=== PATIENT | female | born 1975 | race Caucasian/White ===

== ENCOUNTER 2016-09-24 19:23 | Emergency (ER) | payer SELFPAY ==
[2016-09-24] MEDS ORDERED: LEXAPRO20 MG PO (20:58)
[2016-09-24] MEDS ORDERED: CYMBALTA60 MG PO (21:00)
[2016-09-24] MEDS ORDERED: XARELTO20 MG PO (21:01)
[2016-09-24] MEDS ORDERED: VERAPAMIL HCL240 MG PO (21:02)
[2016-09-24] MEDS ORDERED: CALCITRIOL0.25 MC1 PO (21:08)
[2016-09-24] MEDS ORDERED: PIOGLITAZONE HC15 MG PO (21:10)
[2016-09-24] MEDS ORDERED: VALIUM5 MG PO (21:12)
[2016-09-24] MEDS ORDERED: SOMA350 MG PO (21:15)
[2016-09-24] MEDS ORDERED: OXYMORPHONE HYD10 M1 PO (21:16)
== END 2016-09-24 20:28 | disposition left against medical advice (07) | DRG 951 ==
LOC: ED 19:23 → LWOBS 20:28 → ED 20:56 → LWOBS 20:56 → ED 20:57 → LWOBS 20:57
DX: Z91.19 Patient's noncompliance with other medical treatment and regimen (principal)

== ENCOUNTER 2017-06-08 12:21 | Emergency (ER) | payer OTHER ==
[~2017-06-08 12:21] MED LIST: CALCITRIOL0.25 MC1 PO; CYMBALTA60 MG PO; LEXAPRO20 MG PO; OXYMORPHONE HYD10 M1 PO; PIOGLITAZONE HC15 MG PO; SOMA350 MG PO; VALIUM5 MG PO; VERAPAMIL HCL240 MG PO; XARELTO20 MG PO
[2017-06-08] MEDS ORDERED: FLEXERIL PO (15:09)
[2017-06-08] MEDS ORDERED: TORADOL PO (15:09)
[2017-06-08 15:15] VITALS: BP 129/74
== END 2017-06-08 15:15 | disposition home or self-care (01) | DRG 552 ==
LOC: ED 12:21
DX: S16.1XXA Strain of muscle, fascia and tendon at neck level, initial encounter (principal); S46.912A Strain of unspecified muscle, fascia and tendon at shoulder and upper arm level, left arm, initial encounter; I10 Essential (primary) hypertension; X50.1XXA Overexertion from prolonged static or awkward postures, initial encounter

== ENCOUNTER 2017-06-28 10:25 | Emergency (ER) | payer SELFPAY ==
[~2017-06-28] VITALS: Ht 162.6 cm; Wt 95.4 kg
[~2017-06-28 10:25] MED LIST changes: +FLEXERIL PO; +TORADOL PO
[2017-06-28 11:27] LABS: HEMATOCRIT 47.1 % (37.0-47.0); HEMOGLOBIN 16.1 g/dl (12.0-16.0); IMMATURE GRANULOCYTES 0.4 % (0.0-1.0); MEAN CELL VOLUME 93.3 fL CALC (80.0-100.0); MEAN CORPUSCULAR HGB 31.9 pG CALC (26.0-32.0); MEAN CORPUSCULAR HGB CONC 34.2 g/L CALC (32.0-36.0); NEUT# 6.75 thou/uL (2.00-7.15); RED BLOOD COUNT 5.05 mill/uL (4.20-5.60); RED CELL DISTRI WIDTH 13.5 % (11.5-15.5)
[2017-06-28 11:30] LABS: BILIRUBIN, TOTAL 0.4 mg/dL (0.0-1.4); CREATININE 1.2 mg/dL (0.5-1.0)
[2017-06-28 11:30] LABS: URINE BILIRUBIN - DIPSTICK NEGATIVE (NEGATIVE); URINE BLOOD DIPSTICK NEGATIVE (NEGATIVE); URINE CLARITY CLEAR; URINE COLOR YELLOW; URINE GLUCOSE - DIPSTICK NEGATIVE (NEGATIVE); URINE KETONE NEGATIVE (NEGATIVE); URINE LEUK ESTERASE NEGATIVE (NEGATIVE); URINE NITRITE - DIPSTICK NEGATIVE (Negative); URINE PH 5.5 (4.5-8.0); URINE PROTEIN - DIPSTICK NEGATIVE (NEG-TRACE); URINE SPECIFIC GRAVITY >=1.030; URINE UROBILINOGEN - DIPSTICK 0.2 E.U./dL (0.2)
[2017-06-28 11:32] LABS: BARBITURATES NEGATIVE (NEGATIVE); COCAINE NEGATIVE (NEGATIVE); METHADONE NEGATIVE (NEGATIVE); OXCYCODONE NEGATIVE (NEGATIVE); TETRAHYDROCANNABIONOL NEGATIVE (NEGATIVE); TRICYLIC ANTIDEPRESSANTS NEGATIVE (NEGATIVE)
[2017-06-28 11:34] LABS: ALBUMIN 4.8 g/dL (3.2-5.0); TOTAL PROTEIN 8.9 g/dL (6.3-8.2)
[2017-06-28 12:00] LABS: TSH, 3RD GENERATION 2.9 uIU/mL (0.47 - 4.68)
[2017-06-28] MEDS ORDERED: ANTIVERT PO (13:21)
[2017-06-28 13:43] VITALS: BP 130/86
== END 2017-06-28 13:49 | disposition home or self-care (01) | DRG 149 ==
LOC: ED 10:25
PROVIDERS: Emergency Medicine
DX: R42 Dizziness and giddiness (principal); I10 Essential (primary) hypertension

== ENCOUNTER 2020-12-17 15:42 | Emergency (ER) | payer OTHER ==
[~2020-12-17] VITALS: Ht 162.6 cm; Wt 100.0 kg
[~2020-12-17 15:42] MED LIST changes: +ANTIVERT PO
[2020-12-17 16:27] LABS: HEMOGLOBIN 14.7 g/dl (12.0-16.0); IMMATURE GRANULOCYTES 0.1 % (0.0-5.0); MEAN CELL VOLUME 95.7 fL CALC (80.0-100.0); MEAN CORPUSCULAR HGB CONC 33.4 g/dL CAL (32.0-36.0); NEUT# 5.97 thou/uL (2.00-7.15); RED BLOOD COUNT 4.6 mill/uL (4.20-5.60); RED CELL DISTRI WIDTH 13.5 % (11.5-15.5)
[2020-12-17 16:35] LABS: HCG SERUM/URINE (NEG/POS) NEGATIVE (NEGATIVE)
[2020-12-17 16:55] LABS: CREATININE 1.2 mg/dL (0.5-1.0)
[2020-12-17 18:05] VITALS: BP 148/85
== END 2020-12-17 18:05 | disposition home or self-care (01) | DRG 103 ==
LOC: ED 15:42
PROVIDERS: Family Medicine
DX: R51.9 Headache, unspecified (principal); I10 Essential (primary) hypertension; Z20.822 Contact with and (suspected) exposure to COVID-19

== ENCOUNTER 2021-01-16 03:24 | Emergency (ER) | payer OTHER ==
[~2021-01-16] VITALS: Ht 162.6 cm; Wt 100.0 kg
[2021-01-16 03:56] LABS: HEMATOCRIT 40.5 % (37.0-47.0); HEMOGLOBIN 13.4 g/dl (12.0-16.0); IMMATURE GRANULOCYTES 0.3 % (0.0-5.0); MEAN CELL VOLUME 95.5 fL CALC (80.0-100.0); MEAN CORPUSCULAR HGB 31.6 pG CALC (26.0-32.0); MEAN CORPUSCULAR HGB CONC 33.1 g/dL CAL (32.0-36.0); NEUT# 10.17 thou/uL (2.00-7.15); RED BLOOD COUNT 4.24 mill/uL (4.20-5.60); RED CELL DISTRI WIDTH 13.3 % (11.5-15.5)
[2021-01-16] MEDS ORDERED: BUPROPN HCL300 MG PO (04:02)
[2021-01-16 04:18] LABS: ALBUMIN 4.2 g/dL (3.2-5.0); BILIRUBIN, TOTAL 0.4 mg/dL (0.0-1.4); CREATININE 1.3 mg/dL (0.5-1.0); POTASSIUM 4.2 mmol/l (3.5-5.1); TOTAL PROTEIN 7.8 g/dL (6.3-8.2)
[2021-01-16 05:23] LABS: URINE BILIRUBIN - DIPSTICK NEGATIVE (NEGATIVE); URINE BLOOD DIPSTICK LARGE (NEGATIVE); URINE COLOR YELLOW; URINE GLUCOSE - DIPSTICK NEGATIVE (NEGATIVE); URINE KETONE NEGATIVE (NEGATIVE); URINE LEUK ESTERASE NEGATIVE (NEGATIVE); URINE PROTEIN - DIPSTICK NEGATIVE (NEG-TRACE); URINE UROBILINOGEN - DIPSTICK 0.2 E.U./dL (0.2)
[2021-01-16 05:25] LABS: URINE NITRITE - DIPSTICK NEGATIVE (Negative)
[2021-01-16 05:29] LABS: URINE BACTERIA FEW hpf; URINE RBC 25-50 RBC/hpf (0-5); URINE SQUAMOUS EPITHELIAL CELL FEW EPI/hpf (0-FEW)
[2021-01-16] MEDS ORDERED: LORTAB5 PO (05:35)
[2021-01-16] MEDS ORDERED: TAMSULOSIN0.4 MG PO (05:35)
[2021-01-16 05:45] VITALS: BP 156/90
[2021-01-16] MEDS ORDERED: TORADOL PO (18:30)
[2021-01-16] MEDS ORDERED: KEFLEX500 MG PO (18:30)
== END 2021-01-16 05:50 | disposition home or self-care (01) | DRG 694 ==
LOC: ED 03:24
PROVIDERS: Family Medicine
DX: N20.1 Calculus of ureter (principal); I10 Essential (primary) hypertension; M06.9 Rheumatoid arthritis, unspecified; I89.0 Lymphedema, not elsewhere classified; Z87.442 Personal history of urinary calculi; N20.0 Calculus of kidney; M08.00 Unspecified juvenile rheumatoid arthritis of unspecified site; M35.3 Polymyalgia rheumatica

== ENCOUNTER 2021-01-16 15:45 | Emergency (ER) | payer OTHER ==
[~2021-01-16] VITALS: Ht 162.6 cm; Wt 86.0 kg
[~2021-01-16 15:45] MED LIST changes: +BUPROPN HCL300 MG PO; +LORTAB5 PO; +TAMSULOSIN0.4 MG PO
[2021-01-16 16:30] LABS: HEMATOCRIT 39.9 % (37.0-47.0); HEMOGLOBIN 13.1 g/dl (12.0-16.0); IMMATURE GRANULOCYTES 0.2 % (0.0-5.0); MEAN CELL VOLUME 95.5 fL CALC (80.0-100.0); MEAN CORPUSCULAR HGB 31.3 pG CALC (26.0-32.0); MEAN CORPUSCULAR HGB CONC 32.8 g/dL CAL (32.0-36.0); NEUT# 11.11 thou/uL (2.00-7.15); RED BLOOD COUNT 4.18 mill/uL (4.20-5.60); RED CELL DISTRI WIDTH 13.5 % (11.5-15.5)
[2021-01-16 16:40] LABS: ALBUMIN 4.2 g/dL (3.2-5.0); BILIRUBIN, TOTAL 0.4 mg/dL (0.0-1.4); CREATININE 1.4 mg/dL (0.5-1.0); TOTAL PROTEIN 7.8 g/dL (6.3-8.2)
[2021-01-16] MEDS ORDERED: KEFLEX500 MG PO (18:30)
[2021-01-16] MEDS ORDERED: TORADOL PO (18:30)
[2021-01-16 18:52] VITALS: BP 135/70
== END 2021-01-16 19:04 | disposition home or self-care (01) | DRG 694 ==
LOC: ED 15:45
DX: N20.1 Calculus of ureter (principal); I10 Essential (primary) hypertension; M08.00 Unspecified juvenile rheumatoid arthritis of unspecified site; I89.0 Lymphedema, not elsewhere classified; M35.3 Polymyalgia rheumatica

== ENCOUNTER 2021-01-18 10:36 | Observation (INO) | payer OTHER ==
[~2021-01-18] VITALS: Ht 162.6 cm; Wt 100.0 kg
[~2021-01-18 10:36] MED LIST changes: +KEFLEX500 MG PO
--- NOTE | 2021-01-18 12:18 | NUR ---
PT REPORTS NAS[place]A RESOLVED AND PAIN IMPROVED AT 09/01. PT RESTING MORE COMFORTABLY, CALL LIGHT IN REACH. DENIES ANY NEEDS AT THIS TIME.
[2021-01-18 12:28] LABS: ALBUMIN 4.1 g/dL (3.2-5.0); CREATININE 1.6 mg/dL (0.5-1.0); POTASSIUM 3.9 mmol/l (3.5-5.1); TOTAL PROTEIN 7.9 g/dL (6.3-8.2)
[2021-01-18 12:29] LABS: BILIRUBIN, TOTAL 0.7 mg/dL (0.0-1.4)
--- NOTE | 2021-01-18 12:44 | NUR ---
PT REPORTS PAIN HAS RETURNED. DR ALCARAZ NOTIFIED.
--- NOTE | 2021-01-18 13:11 | NUR ---
PT RECEIVED MORPHINE PER ORDER FOR 10/10 LEFT FLANK PAIN. PT DENIES ANY NAUSEA. CALL LIGHT IN REACH, WILL CONTINUE TO MONITOR
[2021-01-18 13:42] LABS: HEMATOCRIT 36.3 % (37.0-47.0); HEMOGLOBIN 12.1 g/dl (12.0-16.0); IMMATURE GRANULOCYTES 0.2 % (0.0-5.0); MEAN CELL VOLUME 95.3 fL CALC (80.0-100.0); MEAN CORPUSCULAR HGB 31.8 pG CALC (26.0-32.0); MEAN CORPUSCULAR HGB CONC 33.3 g/dL CAL (32.0-36.0); NEUT# 13.12 thou/uL (2.00-7.15); RED BLOOD COUNT 3.81 mill/uL (4.20-5.60); RED CELL DISTRI WIDTH 13.4 % (11.5-15.5)
[2021-01-18 14:15] LABS: URINE BILIRUBIN - DIPSTICK NEGATIVE (NEGATIVE); URINE BLOOD DIPSTICK TRACE-INTACT (NEGATIVE); URINE COLOR YELLOW; URINE GLUCOSE - DIPSTICK NEGATIVE (NEGATIVE); URINE KETONE 15 mg/dL (NEGATIVE); URINE LEUK ESTERASE NEGATIVE (NEGATIVE); URINE NITRITE - DIPSTICK NEGATIVE (Negative); URINE PROTEIN - DIPSTICK NEGATIVE (NEG-TRACE); URINE UROBILINOGEN - DIPSTICK 0.2 E.U./dL (0.2)
--- NOTE | 2021-01-18 17:02 | NUR ---
ICE WATER TO PT. PT REPORTS PAIN AT 3/10, NO NAUSEA AT THIS TIME. PT STABLE AWAITING ADMISSION. PT CALM AND PLEASANT.
--- NOTE | 2021-01-18 18:18 | NUR ---
CALLED MED/SURG TO GIVE REPORT, RN UNABLE TO TAKE REPORT AT THIS TIME DUE TO TAKING IN AN ADMISSION.
--- NOTE | 2021-01-18 18:24 | NUR ---
BRENTON RAY CALLED BACK AND SBAR REPORT GIVEN. PT TO GO TO ROOM 277
--- NOTE | 2021-01-18 18:39 | NUR ---
PT TAKEN TO MED/SURG VIA STRETCHER IN STABLE CONDITION. PT'S BELONGINGS AND ALL PAPERWORK HANDED OFF TO STAFF.
--- NOTE | 2021-01-18 19:00 | NUR ---
PT ARRIVED TO FLOOR AT 1842 VIA WHEELCHAIR WITH ER STAFF; ALERT AND ORIENTED IN STABLE CONDITION. ORIENTED TO ROOM AND CALL LIGHT SYSTEM; CALL LIGHT WITHIN REACH.
[2021-01-18 19:02] VITALS: BP 166/81
--- NOTE | 2021-01-18 20:10 | NUR ---
PT RESTING IN BED, NO SIGNS OF DISTRESS NOTED, RESP EVEN AND UNLABORED. PT ALERT AND ORIENTED X3, NO EDEMA, DISCUSSED LOVENOX, PT DECLINED. AGREED TO WEAR COMPRESSION STOCKINGS. SKIN INTACT. NO PAIN AT THIS TIME.ADMISSION ASSESSMENT COMPLETED, CALL LIGHT IN REACH,CONTINUE TO MONITOR.
--- NOTE | 2021-01-18 21:00 | NUR ---
PT RESTING IN BED, DISCUSSED POC, AND CONSENT FOR PROCEDURE IN AM, PT SIGNED CONSENT, PT STATES SHE IS ALLERGIC TO GARAMYCIN NOT GENTAMYCIN OR METOPROLOL. ALLERGY BRACELET APPLIED. CALL LIGHT IN REACH,CONTINUE TO MONITOR.
--- NOTE | 2021-01-19 | NUR ---
PT RESTING IN BED WITH EYES CLOSED, NO SIGNS OF DISTRESS NOTED, RESP EVEN AND UNLABORED. CALL LIGHT IN REACH,CONTINUE TO MONITOR.
[2021-01-19 04:10] VITALS: BP 136/78
--- NOTE | 2021-01-19 04:10 | NUR ---
PT RESTING IN BED, C/O HEADACHE AND ABD PAIN 8/10 PT MEDICATED PER MAY, CALL LIGHT IN REACH,CONTINUE TO MONITOR.
[2021-01-19 06:05] LABS: HEMATOCRIT 33.9 % (37.0-47.0); HEMOGLOBIN 11.2 g/dl (12.0-16.0); MEAN CELL VOLUME 95.8 fL CALC (80.0-100.0); MEAN CORPUSCULAR HGB 31.6 pG CALC (26.0-32.0); RED BLOOD COUNT 3.54 mill/uL (4.20-5.60); RED CELL DISTRI WIDTH 13.7 % (11.5-15.5)
[2021-01-19 06:07] LABS: CREATININE 2.4 mg/dL (0.5-1.0); MAGNESIUM 1.9 mg/dL (1.6-2.3); POTASSIUM 4.5 mmol/l (3.5-5.1)
[2021-01-19 07:00] VITALS: BP 139/68
--- NOTE | 2021-01-19 07:00 | NUR ---
PATIENT LAYING IN BED AT THIS TIME AND STATED "I HAVE A HEADACH" PATIENT WAS PREVIOUSLY GIVEN PAIN MED AT 0400. PATIENT DID STATE "IT IS GETTING BETTER AND HER PAIN LEVEL IS A "2" OUT OF THE 0-10 PAIN SCALE. PATIENT DENIES ANY OTHER PAIN AND STATES SHE IS VOIDING WITHOUT PAIN OR BLOOD. MILK TANKER DRIVER DONE AT THIS TIME. PATIENT LUNG WINTER ARE CLEAR AND NO SIGNS OF EDEMA PRESENT. ERIKA HOSE ARE ON AT THIS TIME. AND PATIENT WILL BE NPO AFTER BREAKFAST FOR SURGERY AT 1700 TODAY. PATIENT VERBALIZES UNDERSTANDING OF PROCEEDURE. SIDERAILS ARE UP X 2 CALL LIGHT WIHTIN REACH.
--- NOTE | 2021-01-19 08:29 | NUR ---
PATIENT GIVEN FIORICET X 1 DOSE FOR HEADACHE AT THIS TIME.
--- NOTE | 2021-01-19 09:59 | NUR ---
PATIENT RESTING IN BED AT THIS TIME. ROOM DARK AND PATIENT STATES SHE STILL HAS SLIGHT HEADACHE AND THAT SHE HAS A HISTORY OF MIGRANES. PATIENT STATES THE PAIN IS BETTER THAN EARLIER. PATIENT SIDERAILS ARE UP CALL LIGHT IS WITHIN REACH AND PATIENT IS NOW NPO FOR SURGERY LATER TODAY PER DR. CONTI.
--- NOTE | 2021-01-19 11:53 | NUR ---
PATIENT ASSISTED TO BATHROOM AT THIS TIME TO VOID. PATIENT THEN RETURNED PATIENT REMIANS NPO AND PATIENT STATES HER HEADACHE IS A 1-2 AT THIS TIME. PATIENT IS RESTING IN BED CURRENTLY AND AWAITING TO GO TO SURGERY AT THIS TIME. SIDERAILS ARE UP CALL LIGHT WITHIN REACH.
--- NOTE | 2021-01-19 14:34 | NUR ---
PATIENT STATES SHE STILL HAS A HEADACHE AND THAT IT IS DUE TO THE WEATHER AND IT IS SOMETHING SHE CAN MANAGE AT THIS TIME. PATIENT WAS GIVEN AN ICE PACK AND STATED "THIS WILL HELP". PATIENT INFORMED THAT SHE WILL BE GOING DOWN TO SURGERY AT 4PM.
--- NOTE | 2021-01-19 14:59 | NUR ---
ROBERT CHINCHILLA/JOE CALLED AND PATIENT REMOVED VIA WHEELCHAIR TO ENCLOSED HALLWAY. PATIENT VERBALIZED UNDERSTANDING OF PROCEEDURE.
--- NOTE | 2021-01-19 16:00 | NUR ---
CODE RENÉE ALL CLEAR PATIENT RETURNED TO ROOM. SURGERY CALLED AND STATED DUE TO WEATHER SURGERY IS CANCELLED UNTIL 01/20/21 AT 1100 ORDERS GIVEN TO RESUME DIET AND THEN NPO AFTER-MIDNIGHT. PATIENT VERBALIZES CHANGE IN SCHEDULE AND WAS RESTING IN BED WITH SIDERAILS UP AND CALL LIGHT WITHIN REACH.
[2021-01-19 17:17] VITALS: BP 160/73
--- NOTE | 2021-01-19 17:30 | NUR ---
PATIENTS FAMILY AT BEDSIDE AT THIS TIME.
[2021-01-19 19:00] VITALS: BP 160/91
--- NOTE | 2021-01-19 19:14 | NUR ---
PT SITTING ON SIDE OF BED, NO SIGNS OF DISTRESS NOTED, RESP EVEN AND UNLABORED. PT ALERT AND ORIENTED X4, DISCUSSED POC AND CONTINUATION OF STRAINING URINE. PT DENIES ANY PAIN OR COMPLAINTS AT THIS TIME, IV SL AT THIS TIME PT REQUESTING TO SHOWER. ASSESSMENT COMPLETED, CALL LIGHT IN REACH,CONTINUE TO MONITOR.
--- NOTE | 2021-01-19 23:37 | NUR ---
PT RESTING IN BED WITH EYES CLOSED, NO SIGNS OF DISTRESS NOTED, RESP EVEN AND UNLABORED. CALL LIGHT IN REACH,CONTINUE TO MONITOR.
[2021-01-20] VITALS (11 sets, daily range): BP systolic 130–168; BP diastolic 67–101
--- NOTE | 2021-01-20 | NUR ---
ALL FOOD AND DRINKS REMOVED FROM BEDSIDE, PT VERBALIZED UNDERSTANDING TO NPO STATUS. VOICES NO NEEDS OR COMPLAINTS AT THIS TIME. CALL LIGHT IN REACH,CONTINUE TO MONITOR.
--- NOTE | 2021-01-20 03:41 | NUR ---
NEW IV BAG HUNG, PT VOICES NO NEEDS OR COMPLAINTS AT THIS TIME, CALL LIGHT IN REACH, CONTINUE TO MONITOR.
--- NOTE | 2021-01-20 07:15 | NUR ---
PATIENT RESTING IN BED AT THIS TIME. DENEIS ANY PAIN AT THIS TIME. PATIENT HAS BEEN NPO SINCE MIDNIGHT AND IS AWAITING SURGERY AT THIS TIME. VICE PRESIDENT LENDING DONE SEE INTERVENTIONS SIDERAILS ARE UP X 2 CALL LIGHT IS WITHIN REACH AT THIS TIME.
--- NOTE | 2021-01-20 11:51 | NUR ---
PATIENT IS LAYING IN BED AT THIS TIME. PATIENT HAS BEEN PREPARED FOR SURGERY AND IS AWAITING OR AGRICULTURAL ECONOMICS PROFESSOR AT THIS TIME. SIDERAILS ARE UP CALL LIGHT IS WITHIN REACH.
--- NOTE | 2021-01-20 15:06 | NUR ---
PATIENT RETURNED BACK TO FLOOR AT THIS TIME VIA STRETCHER. PATIENT STATES SHE HAS NO PAIN AND "FEELS GREAT". PATIENT WALKED TO BATHROOM AND VOIDED 600 MLS OF PINK TINGED URINE AT THIS TIME. PATIENT WAS ASSITED BACK TO BED AND RESTING COMFORTABLY PATIENT STATES PAIN IS 2 OUT OF THE PAIN SCALE OF 0-10. SEE INTERVENTIONS FOR VITALS. PATIENT STATES SHE IS TO GO HOME LATER TODAY. SIDERAILS ARE UP CALL LIGHT IS WITHIN REACH.
--- NOTE | 2021-01-20 16:00 | NUR ---
LIZZ RESTING IN BED WITH FATHER IN BEDSIDE PATIENT SONDRA ANY PAIN AT THIS TIME. SIDERAILS ARE UP CALL LIGHT IS WITHIN REACH. WILL CONTINUE TO MONITOR
[2021-01-20 16:05] LABS: CREATININE 2.3 mg/dL (0.5-1.0); POTASSIUM 4.2 mmol/l (3.5-5.1)
--- NOTE | 2021-01-20 19:35 | NUR ---
PT RESTING IN BED, NO SIGNS OF DISTRESS NOTED, RESP EVEN AND UNLABORED. PT ALERT AND ORIENTED X3, NO EDEMA, TEDS IN PLACE. SKIN INTACT. PT HAS BEEN VOIDING NO DIFFICULTIES. DENIES ANY PAIN AT THIS TIME. ASSESSMENT COMPLETED. PT VOICES NO NEEDS OR COMPLAINTS AT THIS TIME. IVF INFUSING WITHOUT DIFFICULTY, CALL LIGHT IN REACH, CONTINUE TO MONITOR.
--- NOTE | 2021-01-20 21:04 | NUR ---
PT RETURNED FROM BATHROOM, REQUESTING SLEEPING MED, PT MEDICATED PER MAY. CALL LIGHT IN REACH, CONTINUE TO MONITOR.
--- NOTE | 2021-01-20 23:13 | NUR ---
PT RESTING IN BED WITH EYES CLOSED, NO SIGNS OF DISTRESS NOTED, RESP EVEN AND UNLABORED. NEW IV BAG HUNG, CALL LIGHT IN REACH,CONTINUE TO MONITOR.
[2021-01-21] VITALS: BP 122/74
[2021-01-21 04:00] VITALS: BP 126/74
--- NOTE | 2021-01-21 04:00 | NUR ---
PT RESTING IN BED, NO SIGNS OF DISTRESS NOTED, LABS OBTAINED, PT VOICES NO NEEDS OR COMPLAINTS AT THIS TIME. CALL LIGHT IN REACH,CONTINUE TO MONITOR.
[2021-01-21 05:00] LABS: HEMATOCRIT 39.2 % (37.0-47.0); HEMOGLOBIN 12.7 g/dl (12.0-16.0); MEAN CELL VOLUME 97.5 fL CALC (80.0-100.0); MEAN CORPUSCULAR HGB 31.6 pG CALC (26.0-32.0); MEAN CORPUSCULAR HGB CONC 32.4 g/dL CAL (32.0-36.0); RED BLOOD COUNT 4.02 mill/uL (4.20-5.60); RED CELL DISTRI WIDTH 13.1 % (11.5-15.5)
[2021-01-21 05:23] LABS: CREATININE 1.5 mg/dL (0.5-1.0); MAGNESIUM 1.8 mg/dL (1.6-2.3); POTASSIUM 4.6 mmol/l (3.5-5.1)
[2021-01-21 08:07] VITALS: BP 151/98
--- NOTE | 2021-01-21 08:07 | NUR ---
ASSESSMENT DONE. PATIENT IS ALERT AND ORIENT X3. RESPS EVEN AND UNLABORED. PATIENT DENIES PAIN AT THIS TIME. PATIENT STATED SHE IS READY TO GO HOME TODAY. NOTIFIED PATIENT WE ARE WAITING FOR DOCTOR TO COME IN. PATIENT VERBALIZED UNDERSTANDING. PATIENT DENIES ANY OTHER NEEDS. CALL LIGHT IN REACH.
--- NOTE | 2021-01-21 12:13 | NUR ---
Discharge instructions given. Patient verbalizes understanding of same. Discharged in stable condition via Wheelchair to Home with staff. All belongings sent with pt.
== END 2021-01-21 12:13 | disposition home or self-care (01) | DRG 660 ==
LOC: ED 10:36 → ED-I 12:52 → ED 14:10 → MS2 14:11
PROVIDERS: Family Medicine; Nurse Practitioner; ADMIT Hospitalist; ATTEND Hospitalist
PROC: 0TC78ZZ Extirpation of Matter from Left Ureter, Via Natural or Artificial Opening Endoscopic (ICD-10-PCS; principal; 2021-01-20)
PROC: 0T778DZ Dilation of Left Ureter with Intraluminal Device, Via Natural or Artificial Opening Endoscopic (ICD-10-PCS; 2021-01-20)
DX: N20.1 Calculus of ureter (principal); N17.9 Acute kidney failure, unspecified; D72.829 Elevated white blood cell count, unspecified; E66.9 Obesity, unspecified; I10 Essential (primary) hypertension; F32.A Depression, unspecified; M08.00 Unspecified juvenile rheumatoid arthritis of unspecified site; M35.3 Polymyalgia rheumatica; G43.909 Migraine, unspecified, not intractable, without status migrainosus; Z68.37 Body mass index [BMI] 37.0-37.9, adult; Z20.822 Contact with and (suspected) exposure to COVID-19
CPT/HCPCS: G0378; J0131; J1650; J2710; Q9967

== ENCOUNTER 2021-06-13 10:57 | Observation (INO) | payer OTHER ==
[~2021-06-13] VITALS: Ht 162.6 cm; Wt 102.0 kg
--- NOTE | 2021-06-13 10:58 | NUR ---
PATIENT TO ROOM VIA WHEELCHAIR.
[2021-06-13 11:40] LABS: GFR 60 ML/MIN (>=60 (CALC)); GFR FOR AFR.AMER. > 60 ML/MIN (>=60 (CALC))
[2021-06-13 12:07] LABS: ALBUMIN 4.4 g/dL (3.2-5.0); ALKALINE PHOSPHATASE 91 u/l (38-126); ANION GAP 12 (6-22 (CALC)); BILIRUBIN, TOTAL 0.3 mg/dL (0.0-1.4); BUN 15 mg/dL (7-17); BUN/CREATININE RATIO 16 (12-20 (CALC)); CARBON DIOXIDE 25 mmol/l (22-30); CHLORIDE 107 mmol/l (95-108); GFR 60 ML/MIN (>=60 (CALC)); GFR FOR AFR.AMER. > 60 ML/MIN (>=60 (CALC)); POTASSIUM 3.9 mmol/l (3.5-5.1); SGOT/AST 27 u/l (14-36); SODIUM 140 mmol/l (137-146); TOTAL PROTEIN 7.8 g/dL (6.3-8.2)
[2021-06-13 12:09] LABS: HEMATOCRIT 44.3 % (37.0-47.0); HEMOGLOBIN 14.5 g/dl (12.0-16.0); IMMATURE GRANULOCYTES 0.1 % (0.0-5.0); MEAN CELL VOLUME 95.5 fL CALC (80.0-100.0); MEAN CORPUSCULAR HGB 31.3 pG CALC (26.0-32.0); MEAN CORPUSCULAR HGB CONC 32.7 g/dL CAL (32.0-36.0); NEUT# 4.48 thou/uL (2.00-7.15); RED BLOOD COUNT 4.64 mill/uL (4.20-5.60); RED CELL DISTRI WIDTH 14.2 % (11.5-15.5)
[2021-06-13 12:12] LABS: INTERNATIONAL NORMALIZED RATIO 0.9 RATIO (0.7-1.3); PROTHROMBIN TIME 9.9 SECONDS (9.0-12.5)
[2021-06-13] MEDS ORDERED: UBRELVY50 MG PO (15:26)
[2021-06-13] MEDS ORDERED: FIORICET/CODEIN1 CAP PO (15:27)
--- NOTE | 2021-06-13 15:44 | NUR ---
PT ARRIVED IN ROOM BY WHEELCHAIR, PT TRANSFERED TO BED BY HERSELF, A/O X 4, DENIES PAIN AT THIS TIME, ASKED FOR SOMETHING TO EAT, NOTED NO DIET ON BOARD, TEXTED DR MYRICK TO GET DIET ADDED. NO FURTHER ISSUES
[2021-06-13 17:42] LABS: C-REACTIVE PROTEIN 0.7 mg/dL (0-0.9); CHOLESTEROL HDL RATIO 5.5 (<4.4 (CALC))
[2021-06-13 17:47] VITALS: BP 147/93
[2021-06-13 19:00] VITALS: BP 147/93
--- NOTE | 2021-06-13 19:15 | NUR ---
PATIENT RESTING IN BED AT THIS TIME NEURO CHECK DONE AND NEGATIVE FOR DEFICITS. PATIENT ALERT AND ORIENTED X 3 DENEIS ANY PAIN AND OR HEADACHE AT THIS TIME. PATIENT FAMILY AT BEDSIDE. CALL LIGHT IS WITHIN REACH SIDERRAILS UP X 2 TALLOW REFINER DONE SEE INTERVENTIONS TELE MONITOR OR ERIKA HOSE IN PLACE PER PROTOCOL GRASP ARE STRONG NO EDEMA PRESENCE AND LUNG FIELD CLEAR.
[2021-06-14] VITALS (8 sets, daily range): BP systolic 132–179; BP diastolic 80–113
--- NOTE | 2021-06-14 00:25 | NUR ---
PATIENT RESTING IN BED AT THIS TIME. DENIES ANY NEEDS NEURO CHECKS DONE AND REMAIN UNCHANGED. SIDERAILS ARE UP X 2 CALL LIGHT WTIHIN REACH . TELE MONITOR IN PLACE WILL CONTINUE TO MONITOR.
--- NOTE | 2021-06-14 04:27 | NUR ---
PATIENT UP ON BEDSIDE AT THIS TIME. PATIENT ALERT AND ORIENTED X 3 AND NEURO CHECKS PERFORMED AND ARE NEGATIVE FOR ANY DEFICITS. UA OBTAINEDAND SET TO LAB AT THIS TIME. TELE MONITOR REMAINS IN PLACE AND BEING MONITORED BY ED. SIDERAILS ARE UP CALL LIGHT WITHIN REACH.
[2021-06-14 05:57] LABS: URINE BILIRUBIN - DIPSTICK NEGATIVE (NEGATIVE); URINE BLOOD DIPSTICK MODERATE (NEGATIVE); URINE COLOR YELLOW; URINE GLUCOSE - DIPSTICK NEGATIVE (NEGATIVE); URINE KETONE NEGATIVE (NEGATIVE); URINE PROTEIN - DIPSTICK NEGATIVE (NEG-TRACE); URINE UROBILINOGEN - DIPSTICK 0.2 E.U./dL (0.2)
[2021-06-14 06:01] LABS: URINE NITRITE - DIPSTICK NEGATIVE (Negative)
[2021-06-14 06:02] LABS: URINE LEUK ESTERASE NEGATIVE (NEGATIVE)
[2021-06-14 06:06] LABS: URINE EPITHELIAL CELLS FEW EPI/hpf (0-FEW)
[2021-06-14 06:07] LABS: URINE BACTERIA FEW hpf
--- NOTE | 2021-06-14 08:00 | NUR ---
SHIFT CHANGE REPORT, PT RESTING IN BED, AWAKE ALERT AND ORIENTED, C/O HEADACHE BUT STATES SHE HASN'T FOUND ANY MED THAT HAS RELIEVED HER FRANKLIN, COOL COMPRESS APPLIED TO HEAD, TELE MONITOR IN PLACE, CALL HAWLEY IN REACH, WILL CONTINUE TO MONITOR.
--- NOTE | 2021-06-14 08:42 | NUR ---
Patient is screened for pT intervention and may benefit from functional assessment if medical agrees
--- NOTE | 2021-06-14 09:08 | NUR ---
DOWN TO MRI.
--- NOTE | 2021-06-14 12:00 | NUR ---
FUNMILAYO (SHOW HOST OR HOSTESS) ROUNDED AND REPORTED SHE WAS GREETED WITH A VERY ANGRY IRATE PT WHO USED OBSCENE LANGUAGE TO HER, SHE THEN LEFT THE ROOM APOLOGISING. ON ASSESSMENT, PT WAS VERY POLITE AND RESPECTFUL BUT CONCERNED ABOUT HER ELEVATED BP AND CONSTANT HEADACHE, KEPT UP TO DATE WITH CONCERNS AND ADDRESS NEEDED.
--- NOTE | 2021-06-14 12:40 | NUR ---
BP ELEVATED AND PT VERY ANXIOUS, DR MYRICK NOTIFIED, WROTE ORDERS, CONCERN ADDRESSED.
--- NOTE | 2021-06-14 15:59 | NUR ---
Attempted treatment x 2 this pm. First nursing reported melvi BP and had just medicated her, returned 1 hour later. Pt in rest room, came out and then went back in without talking to therapist. reported they were leaving. No treatment given.
--- NOTE | 2021-06-14 16:59 | NUR ---
BP MEASURES 130/70 ARLENE MANUALLY BP MEASURES 140/70 LAS MANUALLY
--- NOTE | 2021-06-14 18:06 | NUR ---
PT CONTINUES TO HAVE HEADACHES, GAVE NEW ORDER, WILL CONTINUE TO MONITOR AFTER ADMINISTRATION OF MED.
[2021-06-14] MEDS ORDERED: TORADOL PO (18:15)
[2021-06-14] MEDS ORDERED: ZYRTEC10 MG PO (18:15)
[2021-06-14] MEDS ORDERED: FLONASE AL50 MCG/ACT (18:16)
[2021-06-14] MEDS ORDERED: TROKENDI XR25 MG PO (18:18)
--- NOTE | 2021-06-14 19:10 | NUR ---
Discharge instructions given. Patient verbalizes understanding of same. Discharged in stable condition via Wheelchair to Home with family. All belongings sent with pt.
== END 2021-06-14 19:04 | disposition home or self-care (01) | DRG 103 ==
LOC: ED 10:57 → ED-I 13:43 → ED 14:20 → MS2 14:21
PROVIDERS: Family Medicine; ADMIT Internal Medicine; ATTEND Internal Medicine
DX: G43.109 Migraine with aura, not intractable, without status migrainosus (principal); J32.9 Chronic sinusitis, unspecified; I10 Essential (primary) hypertension; M08.00 Unspecified juvenile rheumatoid arthritis of unspecified site; M35.3 Polymyalgia rheumatica; F32.A Depression, unspecified; Z20.822 Contact with and (suspected) exposure to COVID-19
CPT/HCPCS: G0378; Q9967

== ENCOUNTER 2022-12-24 06:58 | Day surgery (SDC) | payer OTHER ==
[~2022-12-24] VITALS: Ht 162.6 cm; Wt 87.1 kg
[~2022-12-24 06:58] MED LIST changes: +ATORVASTATIN CA10 MG PO; +FIORICET/CODEIN1 CAP PO; +FLONASE AL50 MCG/ACT; +PROPRANOLOL HYD40 MG PO; +QULIPTA60 MG PO; +TROKENDI XR25 MG PO; +UBRELVY50 MG PO; +ZYRTEC10 MG PO
[2022-12-24 08:58] VITALS: BP 115/73
== END 2022-12-24 09:30 | disposition home or self-care (01) | DRG 951 ==
LOC: ENDO 06:58 → ORM 08:00 → ENDO 09:30
PROVIDERS: ATTEND Internal Medicine Gastroenterology
PROC: 0DJD8ZZ Inspection of Lower Intestinal Tract, Via Natural or Artificial Opening Endoscopic (ICD-10-PCS; principal; 2022-12-24)
DX: Z12.11 Encounter for screening for malignant neoplasm of colon (principal); K64.8 Other hemorrhoids; K59.09 Other constipation; I10 Essential (primary) hypertension; E78.5 Hyperlipidemia, unspecified; Z86.010 Personal history of colon polyps

== ENCOUNTER 2023-09-26 18:09 | Emergency (ER) | payer OTHER ==
[~2023-09-26] VITALS: Ht 162.6 cm; Wt 89.0 kg
[2023-09-26] MEDS ORDERED: ACETAMINOPHEN 500 MG TAB PO ONE ×2 (19:20→19:47)
[2023-09-26] MEDS ORDERED: KETOROLAC TROMETHAMINE 30 MG/ML SDV IV ONE (19:20)
[2023-09-26] MEDS ORDERED: DEXAMETHASONE SOD. PHOSPHATE 10 MG/ML VIAL IV ONE (19:20)
[2023-09-26] MEDS ORDERED: PROMETHAZINE HCL 25 MG/ML AMP IV ONE (19:20)
[2023-09-26] MEDS ORDERED: DiphenhydrAMINE HCL 50 MG/ML SDV IV ONE (19:20)
[2023-09-26] MEDS ORDERED: SODIUM CHLORIDE 0.9% 1,000 ML IV ONE (19:20)
[2023-09-26 20:00] VITALS: BP 155/92
[2023-09-26 20:47] VITALS: BP 155/92
== END 2023-09-26 20:47 | disposition home or self-care (01) | DRG 103 ==
LOC: ED 18:09
DX: G43.109 Migraine with aura, not intractable, without status migrainosus (principal); I10 Essential (primary) hypertension; M35.3 Polymyalgia rheumatica; M08.00 Unspecified juvenile rheumatoid arthritis of unspecified site